=== PATIENT | female | born 1940 | race Two or more races ===

== ENCOUNTER 2023-08-17 14:20 | Inpatient (IN) | payer OTHER, MEDICARE ==
[2023-08-17] MEDS ORDERED: diphenhydrAMINE 50 MG/ML VIAL ONE (14:32)
[2023-08-17] MEDS ORDERED: methylPREDNISolone Sod Succ/PF 125 MG/2 ML VIAL ONE (14:32)
[2023-08-17] MEDS ORDERED: EPINEPHrine 1 MG/10 ML Abboject SYRINGE ONE (14:32)
[2023-08-17] MEDS ORDERED: Nitroglycerin 2% Ointment 1 INCH/1 GM Packet ONE (14:37)
[2023-08-17] MEDS ORDERED: Labetalol HCl 100 MG/20 ML VIAL ONE (14:37)
[2023-08-17] MEDS ORDERED: Iopamidol-370 76% 500 ML MDV (1 ML CHARGE) ONE (14:42)
[2023-08-17 14:55] LABS: #Basophils 0.1 thou/uL (0.0-0.2); #Eosinphils 0.1 thou/uL (0.0-0.7); #Monocytes 0.9 thou/uL (0.11-0.59); #Neutrophils 6.5 thou/uL (1.40-6.50); %Basophils 0.8 % (0.0-1.0); %Eosinophils 1.2 % (0.0-10.0); %Lymphocytes 20.9 % (21.0-51.0); %Monocytes 9.4 % (0.0-10.0); %Neutrophils 65.3 % (42.0-75.0); Hematocrit 41.6 % (36.0-47.0); Hemoglobin 13.9 g/dL (12.0-16.0); Mean Corpuscular HGB CONC 33.4 g/dL (32.0-36.0); Mean Corpuscular Hemoglobin 28.8 pg (27.0-31.0); Mean Corpuscular Volume 86.1 fl (78.0-98.0); Mean Platelet Volume 8.9 fL (7.4-10.4); Platelet Count 337 10x3/uL (130-400); RBC Distribution Width 15.3 % (11.5-14.5); Red Blood Cell (RBC) Count 4.83 mill/uL (4.20-5.40)
[2023-08-17 15:12] LABS: Prothrombin Time 12.8 sec (12.0-14.7)
[2023-08-17 15:18] LABS: ALT (SGPT) 21 U/L (8-55); AST (SGOT) 30 U/L (5-34); Albumin 4.1 g/dL (3.4-4.8); Alkaline Phosphatase 84 U/L (40-110); Anion Gap 13 mmol/L (10-20); BUN (Urea Nitrogen) 16 mg/dL (9.8-20.1); Bilirubin, Total 0.4 mg/dL (0.2-1.2); Calc. Creatinine Clearance 0 mL/min (70-130); Calcium 9.5 mg/dL (7.8-10.44); Carbon Dioxide 26 mmol/L (23-31); Chloride 99 mmol/L (98-107); Estimated GFR 58; Globulin 3.6 g/dL (2.4-3.5); Glucose 102 mg/dL (83-110); Potassium 4.3 mmol/L (3.5-5.1); Protein, Total 7.7 g/dL (5.8-8.1); Sodium 134 mmol/L (136-145)
[2023-08-17 15:28] LABS: Troponin I Less than 0.010 ng/mL (< 0.028)
[2023-08-17] MEDS ORDERED: Morphine 2 MG/ML VIAL SLOW IVP PRN ×2 (15:45→21:48)
[2023-08-17] MEDS ORDERED: hydrALAZINE 20 MG/ML VIAL ONE (15:58)
[2023-08-17] MEDS ORDERED: hydrALAZINE 20 MG/ML VIAL SLOW IVP SCH (16:00)
[2023-08-17] MEDS ORDERED: Ipratropium/Albuterol 3 ML NEB NEB PRN (16:02)
[2023-08-17] MEDS ORDERED: LORazepam 2 MG/ML SYR.(CARPUJECT) ONE (16:02)
[2023-08-17] MEDS ORDERED: LORazepam 2 MG/ML SYR.(CARPUJECT) IVP STA (16:03)
[2023-08-17] MEDS ORDERED: Cyclobenzaprine 10 MG TAB PO PRN ×2 (17:12→21:46)
[2023-08-17] MEDS: Famotidine/PF 20 mg/2ml Vial SLOW IVP SCH (20:34)
[2023-08-17] MEDS: Sodium Chloride 0.9% 1,000 ML IV SCH (20:36)
[2023-08-17] MEDS: Gabapentin 100 MG CAP PO SCH (20:49)
[2023-08-17] MEDS: hydrALAZINE 20 MG/ML VIAL SLOW IVP PRN (20:49)
[2023-08-17] MEDS: Atorvastatin Calcium 40 MG TAB PO SCH (20:49)
[2023-08-17] MEDS: Primidone 50 MG TAB PO SCH (20:49)
[2023-08-17] MEDS: Metoprolol Tartrate 5 MG (5 mL) VIAL IVP SCH (21:34)
[2023-08-17] MEDS: Levothyroxine Sodium 75 MCG TAB PO SCH (21:34)
[2023-08-17 21:37] LABS: Free T4 (Free Thyroxine) 1.14 ng/dL (0.70-1.48); Thyroid Stimulating Hormone 5.7164 uIU/mL (0.35-4.94)
[2023-08-17] MEDS: Dexamethasone 4 mg/ml Vial SLOW IVP SCH (22:18)
[2023-08-17] MEDS: dilTIAZem 125 MG in Sodium Chloride 0.9% 100 ML IVPB SCH (22:19)
[2023-08-17 22:24] LABS: Magnesium 1.7 mg/dL (1.6-2.6)
[2023-08-17] MEDS: Magnesium 2 GM/50 ML(in water) 2 GM in Premix 1 BAG IVPB SCH (23:10)
[2023-08-17] MEDS: Acetaminophen 500 MG TAB PO SCH (23:15)
[2023-08-18 05:25] LABS: #Monocytes 0.4 thou/uL (0.11-0.59); #Neutrophils 8.3 thou/uL (1.40-6.50); %Basophils 0.1 % (0.0-1.0); %Lymphocytes 9.7 % (21.0-51.0); %Monocytes 4.2 % (0.0-10.0); %Neutrophils 85.6 % (42.0-75.0); Hematocrit 39.2 % (36.0-47.0); Mean Corpuscular HGB CONC 33.2 g/dL (32.0-36.0); Mean Corpuscular Volume 87.5 fl (78.0-98.0); Mean Platelet Volume 9.2 fL (7.4-10.4); Platelet Count 336 10x3/uL (130-400); RBC Distribution Width 15.6 % (11.5-14.5); Red Blood Cell (RBC) Count 4.48 mill/uL (4.20-5.40); White Blood Cell (WBC) Count 9.7 10x3/uL (4.8-10.8)
[2023-08-18 05:54] LABS: Anion Gap 17 mmol/L (10-20); BUN (Urea Nitrogen) 17 mg/dL (9.8-20.1); Calc. Creatinine Clearance 37 mL/min (70-130); Calcium 9.1 mg/dL (7.8-10.44); Carbon Dioxide 18 mmol/L (23-31); Chloride 101 mmol/L (98-107); Estimated GFR 53; Glucose 194 mg/dL (83-110); Magnesium 2.6 mg/dL (1.6-2.6); Phosphorus 3.2 mg/dL (2.3-4.7); Potassium 4.3 mmol/L (3.5-5.1); Sodium 132 mmol/L (136-145)
[2023-08-18] MEDS: Levothyroxine Sodium 75 MCG TAB PO SCH (05:57)
[2023-08-18 06:14] LABS: Free T4 (Free Thyroxine) 1.09 ng/dL (0.70-1.48); Thyroid Stimulating Hormone 1.7158 uIU/mL (0.35-4.94)
[2023-08-18] MEDS ORDERED: PROPOFOL 20 ML ONE (09:45)
[2023-08-18] MEDS ORDERED: Ondansetron PF 4 MG/2 ML Vial ONE (10:25)
[2023-08-18] MEDS ORDERED: Lidocaine 1% PF 5 ML VIAL ONE (10:25)
[2023-08-18] MEDS ORDERED: Rocuronium Bromide 10 MG/ML (10ML VIAL) ONE (10:25)
[2023-08-18] MEDS ORDERED: Thrombin 5000 UNITS/5 ML VIAL ONE (10:33)
[2023-08-18] MEDS ORDERED: CEFAZOLIN 2 GM VIAL ONE (10:58)
[2023-08-18] MEDS ORDERED: Sodium Chloride 0.9% 100 ML ONE (10:59)
[2023-08-18] MEDS ORDERED: SUGAMMADEX SODIUM 200 MG/2 ML VIAL ONE (13:10)
[2023-08-18] MEDS ORDERED: fentaNYL 50 mcg/mL 1 mL Vial ONE ×2 (13:32→14:18)
[2023-08-18] MEDS ORDERED: diphenhydrAMINE 25 MG CAP PO PRN (13:46)
[2023-08-18] MEDS ORDERED: Milk Of Magnesia 30 ML UDCUP PO PRN (13:46)
[2023-08-18] MEDS ORDERED: HYDROcodone/Acetaminophen 7.5/325 mg Tablet PO PRN (13:54)
[2023-08-18] MEDS ORDERED: Acetaminophen 325 MG TAB PO PRN (13:54)
[2023-08-18] MEDS ORDERED: Acetaminophen/Codeine 30-300mg Tablet PO PRN (13:54)
[2023-08-18] MEDS ORDERED: Phenol 177 ML BOT PO PRN (13:55)
[2023-08-18] MEDS ORDERED: HYDROcodone/Acetaminophen 5/325 mg Tablet PO PRN (14:00)
[2023-08-18] MEDS ORDERED: Iopamidol-370 76% 500 ML MDV (1 ML CHARGE) ONE (15:17)
[2023-08-18] MEDS: Morphine 2 MG/ML VIAL SLOW IVP SCH (15:26)
[2023-08-18] MEDS ORDERED: Famotidine/PF 20 mg/2ml Vial SLOW IVP SCH (15:30)
[2023-08-18] MEDS: methylPREDNISolone Sod Succ 40 MG VIAL IVP SCH (15:50)
[2023-08-18] MEDS: diphenhydrAMINE 50 MG/ML VIAL IVP SCH (15:51)
[2023-08-18] MEDS: Famotidine/PF 20 mg/2ml Vial SLOW IVP SCH (15:51)
[2023-08-18] MEDS: Gabapentin 100 MG CAP PO SCH ×2 (16:45→19:20)
[2023-08-18] MEDS: Sodium Chloride 0.9% 1,000 ML IV SCH (16:45)
[2023-08-18] MEDS: Haloperidol Lactate 5 MG/ML VIAL SLOW IVP SCH ×2 (17:08→21:15)
[2023-08-18] MEDS ORDERED: Dexmedetomidine In 0.9 % NaCl 100 ML IVPB SCH (18:15)
[2023-08-18] MEDS ORDERED: dilTIAZem 125 MG in Sodium Chloride 0.9% 100 ML IVPB SCH ×3 (18:15→23:00)
[2023-08-18] MEDS: Esmolol 2,500 MG/250 ML 250 ML IVPB SCH (20:54)
[2023-08-18] MEDS: OLANZapine 10 MG VIAL IM SCH (21:54)
[2023-08-18] MEDS: Sterile Water 10 ML VIAL FS SCH (21:54)
[2023-08-18] MEDS: Melatonin 3 MG TAB PO SCH (22:03)
[2023-08-18] MEDS: QUEtiapine 25 MG TAB PO SCH (22:03)
[2023-08-18] MEDS: CEFAZOLIN 2 GM in Sodium Chloride 0.9% 100 ML IVPB SCH (22:04)
[2023-08-18] MEDS: dilTIAZem 125 MG in Sodium Chloride 0.9% 100 ML IVPB SCH (23:04)
[2023-08-19] MEDS: Morphine 2 MG/ML VIAL SLOW IVP PRN (00:08)
[2023-08-19 03:59] LABS: #Monocytes 1.2 thou/uL (0.11-0.59); #Neutrophils 15.3 thou/uL (1.40-6.50); %Basophils 0.1 % (0.0-1.0); %Monocytes 6.9 % (0.0-10.0); %Neutrophils 87.3 % (42.0-75.0); Hematocrit 37.2 % (36.0-47.0); Hemoglobin 12.4 g/dL (12.0-16.0); Mean Corpuscular HGB CONC 33.3 g/dL (32.0-36.0); Mean Corpuscular Hemoglobin 29.2 pg (27.0-31.0); Mean Corpuscular Volume 87.5 fl (78.0-98.0); Mean Platelet Volume 9.3 fL (7.4-10.4); Platelet Count 290 10x3/uL (130-400); RBC Distribution Width 15.8 % (11.5-14.5); Red Blood Cell (RBC) Count 4.25 mill/uL (4.20-5.40); White Blood Cell (WBC) Count 17.5 10x3/uL (4.8-10.8)
[2023-08-19 04:23] LABS: Anion Gap 13 mmol/L (10-20); BUN (Urea Nitrogen) 20 mg/dL (9.8-20.1); Calc. Creatinine Clearance 44 mL/min (70-130); Calcium 8.8 mg/dL (7.8-10.44); Carbon Dioxide 24 mmol/L (23-31); Chloride 102 mmol/L (98-107); Estimated GFR 66; Glucose 170 mg/dL (83-110); Potassium 4.3 mmol/L (3.5-5.1); Sodium 135 mmol/L (136-145)
[2023-08-19] MEDS: Sterile Water 10 ML VIAL FS PRN ×2 (04:53→21:16)
[2023-08-19] MEDS: OLANZapine 10 MG VIAL IM SCH ×2 (04:53→21:16)
[2023-08-19] MEDS: hydrALAZINE 20 MG/ML VIAL SLOW IVP PRN (16:42)
[2023-08-19] MEDS: Labetalol HCl 100 MG/20 ML VIAL SLOW IVP SCH ×2 (19:33→21:51)
[2023-08-19] MEDS: Sodium Chloride 0.9% 1,000 ML IV SCH (21:15)
[2023-08-19] MEDS: fentaNYL 50 mcg/mL 1 mL Vial SLOW IVP SCH (23:01)
[2023-08-19] MEDS: niCARdipine 25 MG in Sodium Chloride 0.9% 250 ML 250 ML IVPB PRN (23:42)
[2023-08-20] MEDS ORDERED: Milk Of Magnesia 30 ML UDCUP PER TUBE PRN (11:45)
[2023-08-20] MEDS: Labetalol HCl 100 MG/20 ML VIAL SLOW IVP PRN (14:04)
[2023-08-20] MEDS: HYDROcodone/Acetaminophen 5/325 mg Tablet PER TUBE PRN (15:01)
[2023-08-20] MEDS: Ondansetron PF 4 MG/2 ML Vial IVP PRN (15:01)
[2023-08-20] MEDS: Atorvastatin Calcium 40 MG TAB PER TUBE SCH (21:00)
[2023-08-20] MEDS: Melatonin 3 MG TAB PER TUBE SCH (21:00)
[2023-08-20] MEDS: QUEtiapine 25 MG TAB PER TUBE SCH (21:01)
[2023-08-20] MEDS: Primidone 50 MG TAB PER TUBE SCH (21:01)
[2023-08-21] MEDS: Levothyroxine Sodium 75 MCG TAB PER TUBE SCH (05:44)
[2023-08-21] MEDS: Acetaminophen/Codeine 30-300mg Tablet PER TUBE PRN (07:48)
[2023-08-21] MEDS: Lisinopril 10 MG TAB PO SCH (08:30)
[2023-08-21] MEDS ORDERED: Piperacillin/Tazobactam 3.375 GM in Sodium Chloride 0.9% 100 ML IVPB SCH (14:30)
[2023-08-21] MEDS: Piperacillin/Tazobactam 3.375 GM in Sodium Chloride 0.9% 100 ML IVPB SCH ×2 (15:24→19:38)
[2023-08-21] MEDS: Metoprolol Tartrate 5 MG (5 mL) VIAL IVP SCH (16:45)
[2023-08-21] MEDS: Metoprolol Tartrate 5 MG (5 mL) VIAL ONE (17:43)
[2023-08-21] MEDS: Adenosine 6 mg (2 mL) VIAL ONE (17:43)
[2023-08-21] MEDS: Morphine 2 MG/ML VIAL SLOW IVP SCH (17:46)
[2023-08-21] MEDS: Metoprolol Tartrate 25 MG TAB PO SCH (19:54)
[2023-08-21] MEDS ORDERED: Metoprolol Tartrate 25 MG TAB PO SCH (21:00)
[2023-08-22 04:25] LABS: Hematocrit 38.7 % (36.0-47.0); Hemoglobin 12.9 g/dL (12.0-16.0); Manual Diff?? YES; Mean Corpuscular HGB CONC 33.3 g/dL (32.0-36.0); Mean Corpuscular Hemoglobin 28.9 pg (27.0-31.0); Mean Corpuscular Volume 86.6 fl (78.0-98.0); Platelet Count 269 10x3/uL (130-400); RBC Distribution Width 15.9 % (11.5-14.5); Red Blood Cell (RBC) Count 4.47 mill/uL (4.20-5.40)
[2023-08-22 04:26] LABS: Delete Auto Diff?? YES
[2023-08-22 04:44] LABS: Anion Gap 10 mmol/L (10-20); BUN (Urea Nitrogen) 24 mg/dL (9.8-20.1); Calc. Creatinine Clearance 38 mL/min (70-130); Calcium 8.7 mg/dL (7.8-10.44); Carbon Dioxide 26 mmol/L (23-31); Chloride 105 mmol/L (98-107); Estimated GFR 66; Glucose 259 mg/dL (83-110); Potassium 3.3 mmol/L (3.5-5.1); Sodium 138 mmol/L (136-145)
[2023-08-22 05:31] LABS: Anisocytosis SLIGHT = 6-15 cells HPF (0-5); Band 7 % (5-11); CellaVision Operator ID lab.sh2; Lymphocytes 7 % (21-51); Macrocytosis SLIGHT = 6-15 cells HPF (0-5); Monocytes 10 % (0-10); Neutrophil 76 % (42-75); Platelet Adequacy Comment Platelets Normal; Polychromasia SLIGHT = 2-3 cells HPF (0-2); Smudge Cells 18.8 %; Total Cell Count 101
[2023-08-22] MEDS ORDERED: Electrolyte Replacement Protocol 1 EACH FS SCH (08:00)
[2023-08-22] MEDS: Potassium Bicarbonate/Cit Ac 20 MEQ TAB PER TUBE SCH (08:16)
[2023-08-22] MEDS: Amoxicillin/Potassium Clav 875 MG TAB PO SCH (08:16)
[2023-08-22] MEDS: Enoxaparin 30 MG (0.3 mL) SYRINGE SC SCH (10:44)
[2023-08-22 12:53] LABS: Potassium 3.8 mmol/L (3.5-5.1)
[2023-08-22] MEDS: Metoprolol Tartrate 25 MG TAB PO SCH (15:53)
[2023-08-23] MEDS: diphenhydrAMINE 25 MG CAP PER TUBE PRN (00:13)
[2023-08-23] MEDS: Metoprolol Tartrate 50 MG TAB PO SCH (09:09)
[2023-08-23] MEDS: Enoxaparin 30 MG (0.3 mL) SYRINGE SC SCH (09:09)
[2023-08-23] MEDS: hydrALAZINE 20 MG/ML VIAL SLOW IVP PRN (20:04)
[2023-08-24] MEDS: NIFEdipine XL 30 MG ER.TAB PO SCH (08:28)
[2023-08-24] MEDS: Dexamethasone 10 MG/ML VIAL SLOW IVP SCH (12:32)
[2023-08-24 12:45] LABS: Bilirubin Negative (Negative); Blood, Urine Negative (Negative); CAUTI Indications for Culture Alt mental st,lethar; Clarity Turbid (Clear); Glucose, Urine (Dipstick) 150 mg/dL (Negative); Ketone, Urine Negative (Negative); Leukocyte 250 Leu/uL (Negative); Nitrite Negative (Negative); Protein, Urine (Dipstick) 70 mg/dL (Neg-Trace); Specific Gravity, Urine 1.021 (1.002-1.036); Squamous Epithelial 0-3 HPF (0-3); Urobilinogen 3 mg/dL (Less than 2); WBC/HPF Greater than 50 HPF (0-3); pH, Urine 6.5 (5.0-9.0)
[2023-08-24 13:23] LABS: Bacteria/HPF 1+ HPF (None Seen)
[2023-08-24 13:25] LABS: Renal Epithelial 0-3 HPF (None Seen); Transitional Epithelial 0-3 HPF (None Seen)
[2023-08-24 13:29] LABS: Urine Culture Reflex Yes Yes
[2023-08-24] MEDS: Dexamethasone 4 mg/ml Vial SLOW IVP SCH (17:22)
[2023-08-25] MEDS: LevoFLOXacin 750 mg/D5W 750 MG in Premix 1 BAG IVPB SCH (10:02)
[2023-08-25] MEDS: Famotidine/PF 20 mg/2ml Vial SLOW IVP SCH (10:04)
[2023-08-25] MEDS: Dexamethasone 4 mg/ml Vial SLOW IVP SCH (12:44)
[2023-08-25] MEDS: Acetaminophen 325 MG TAB PER TUBE PRN (20:38)
[2023-08-26] MEDS: Metoprolol Tartrate 5 MG (5 mL) VIAL IVP SCH (13:00)
[2023-08-26] MEDS: hydrALAZINE 25 MG TAB PO SCH (14:21)
[2023-08-26 14:49] LABS: Anion Gap 17 mmol/L (10-20); BUN (Urea Nitrogen) 43 mg/dL (9.8-20.1); Calc. Creatinine Clearance 44 mL/min (70-130); Calcium 9.2 mg/dL (7.8-10.44); Carbon Dioxide 20 mmol/L (23-31); Chloride 105 mmol/L (98-107); Estimated GFR 64; Glucose 357 mg/dL (83-110); Potassium 4.1 mmol/L (3.5-5.1); Sodium 138 mmol/L (136-145)
[2023-08-26] MEDS ORDERED: NIFEdipine 10 MG CAP PO SCH (15:00)
[2023-08-26] MEDS ORDERED: Dextrose 5% in Water 1,000 ML IV PRN (15:27)
[2023-08-26] MEDS ORDERED: Glucagon 1 MG/ML KIT IM PRN (15:27)
[2023-08-26] MEDS ORDERED: Dextrose 50% Abboject 50 ML SYRINGE SLOW IVP PRN (15:27)
[2023-08-26] MEDS: HumaLOG 300 UNITS/3 ML VIAL SC PRN (15:57)
[2023-08-26] MEDS: Dexamethasone 4 mg/ml Vial SLOW IVP SCH (18:19)
[2023-08-27] MEDS: Famotidine/PF 20 mg/2ml Vial SLOW IVP SCH (08:14)
[2023-08-27] MEDS ORDERED: Dextrose 50% Abboject 50 ML SYRINGE SLOW IVP PRN (16:24)
[2023-08-27] MEDS ORDERED: Glucagon 1 MG/ML KIT IM PRN (16:24)
[2023-08-27] MEDS ORDERED: Dextrose 5% in Water 1,000 ML IV PRN (16:24)
[2023-08-27] MEDS: Metoprolol Tartrate 5 MG (5 mL) VIAL IVP PRN (23:41)
[2023-08-28] MEDS: HumaLOG 300 UNITS/3 ML VIAL SC PRN (05:44)
[2023-08-28 06:03] LABS: #Basophils 0.1 thou/uL (0.0-0.2); #Monocytes 1.4 thou/uL (0.11-0.59); #Neutrophils 13.2 thou/uL (1.40-6.50); %Basophils 0.4 % (0.0-1.0); %Lymphocytes 7.1 % (21.0-51.0); %Monocytes 8.6 % (0.0-10.0); Hemoglobin 14.1 g/dL (12.0-16.0); Mean Corpuscular HGB CONC 32.8 g/dL (32.0-36.0); Mean Corpuscular Hemoglobin 28.6 pg (27.0-31.0); Mean Corpuscular Volume 87.2 fl (78.0-98.0); Mean Platelet Volume 10.4 fL (7.4-10.4); Platelet Count 474 10x3/uL (130-400); RBC Distribution Width 15.7 % (11.5-14.5); Red Blood Cell (RBC) Count 4.93 mill/uL (4.20-5.40); White Blood Cell (WBC) Count 16.1 10x3/uL (4.8-10.8)
[2023-08-28 06:36] LABS: Anion Gap 13 mmol/L (10-20); BUN (Urea Nitrogen) 43 mg/dL (9.8-20.1); Calc. Creatinine Clearance 44 mL/min (70-130); Calcium 9.3 mg/dL (7.8-10.44); Carbon Dioxide 25 mmol/L (23-31); Chloride 102 mmol/L (98-107); Estimated GFR 65; Glucose 326 mg/dL (83-110); Potassium 4.3 mmol/L (3.5-5.1); Sodium 136 mmol/L (136-145)
[2023-08-28] MEDS: Polyethylene Glycol 3350 17 GM Packet PER TUBE SCH (10:13)
[2023-08-28] MEDS: Insulin Glargine 30 UNITS/0.3 ML VIAL SC SCH ×2 (10:13→21:27)
[2023-08-28 12:22] LABS: Hemoglobin A1c 6.4 % (4.0-6.0)
[2023-08-28 15:42] VITALS: BMI 21.9
[2023-08-28] MEDS: Dexamethasone 4 mg/ml Vial SLOW IVP SCH (17:53)
[2023-08-30] MEDS: Famotidine 20 MG TAB PO SCH (09:44)
[2023-08-30] MEDS: hydrALAZINE 25 MG TAB PO SCH (09:44)
[2023-08-30] MEDS ORDERED: HumaLOG 300 UNITS/3 ML VIAL SC PRN (15:16)
[2023-08-30] MEDS: Dexamethasone 4 mg/ml Vial SLOW IVP SCH (18:11)
[2023-08-30] MEDS: Insulin Glargine 30 UNITS/0.3 ML VIAL SC SCH (20:47)
[2023-08-31] MEDS: Primidone 50 MG TAB PER TUBE SCH (09:33)
[2023-08-31 17:56] VITALS: BP 128/62; TEMP 97.5
== END 2023-08-31 17:50 | DRG 471 ==
LOC: ERS 14:20 → OBSVTOIN 15:14 → 2SE 15:14 → IMCU/EMU 08-18 18:58 → CCU 08-18 21:20 → 2NO 08-22 10:56
PROVIDERS: ADMIT Student in an Organized Health Care Education/Training Program; ATTEND Student in an Organized Health Care Education/Training Program
PROC: 3E033XZ Introduction of Vasopressor into Peripheral Vein, Percutaneous Approach (ICD-10-PCS; 2023-08-17)
PROC: 0RB30ZZ Excision of Cervical Vertebral Disc, Open Approach (ICD-10-PCS; principal; 2023-08-18)
PROC: 0RG20A0 Fusion of 2 or more Cervical Vertebral Joints with Interbody Fusion Device, Anterior Approach, Anterior Column, Open Approach (ICD-10-PCS; 2023-08-18)
PROC: 01N10ZZ Release Cervical Nerve, Open Approach (ICD-10-PCS; 2023-08-18)
DX: S32.039A Unspecified fracture of third lumbar vertebra, initial encounter for closed fracture (principal); J69.0 Pneumonitis due to inhalation of food and vomit; S02.839A Fracture of medial orbital wall, unspecified side, initial encounter for closed fracture; G93.40 Encephalopathy, unspecified; R47.01 Aphasia; N39.0 Urinary tract infection, site not specified; M48.02 Spinal stenosis, cervical region; S14.129A Central cord syndrome at unspecified level of cervical spinal cord, initial encounter; V89.2XXA Person injured in unspecified motor-vehicle accident, traffic, initial encounter; I10 Essential (primary) hypertension; Z91.041 Radiographic dye allergy status; Z88.2 Allergy status to sulfonamides; Z91.013 Allergy to seafood; Z90.89 Acquired absence of other organs; R31.0 Gross hematuria; I16.0 Hypertensive urgency; I48.0 Paroxysmal atrial fibrillation; Z79.899 Other long term (current) drug therapy; E11.9 Type 2 diabetes mellitus without complications; E06.3 Autoimmune thyroiditis; Z79.4 Long term (current) use of insulin
CPT/HCPCS: 36415; 36416; 70450; 70551; 71045; 71260; 72125; 72141; 72194; 74018; 74177; 74230; 80048; 80053; 81001; 83036; 83735; 83880; 84100; 84439; 84443; 84481; 84484; 85025; 85610; 85730; 87086; 93005; 93010; 93306; 93970; 96374; 96375; C1713; G0390; J0171; J0360; J1100; J1200; J1630; J1650; J1815; J1956; J2060; J2272; J2405; J2543; J2704; J2920; J2930; J3010; J3475; J3490; J7050; Q9967; S0028

== ENCOUNTER 2023-09-24 07:30 | Inpatient (IN) | payer MEDICARE ==
[2023-09-24] MEDS ORDERED: fentaNYL 50 mcg/mL 1 mL Vial ONE ×2 (07:43→12:05)
[2023-09-24 07:44] LABS: #Basophils 0.1 thou/uL (0.0-0.2); #Eosinphils 0.2 thou/uL (0.0-0.7); #Monocytes 0.8 thou/uL (0.11-0.59); #Neutrophils 3.2 thou/uL (1.40-6.50); %Eosinophils 4.1 % (0.0-10.0); %Lymphocytes 26.3 % (21.0-51.0); %Neutrophils 54.1 % (42.0-75.0); Hematocrit 38.7 % (36.0-47.0); Hemoglobin 12.6 g/dL (12.0-16.0); Mean Corpuscular HGB CONC 32.6 g/dL (32.0-36.0); Mean Corpuscular Hemoglobin 29.3 pg (27.0-31.0); Mean Platelet Volume 8.9 fL (7.4-10.4); Platelet Count 332 10x3/uL (130-400); RBC Distribution Width 16.3 % (11.5-14.5); White Blood Cell (WBC) Count 5.9 10x3/uL (4.8-10.8)
[2023-09-24 08:01] LABS: ALT (SGPT) 13 U/L (8-55); AST (SGOT) 18 U/L (5-34); Albumin 3.3 g/dL (3.4-4.8); Alkaline Phosphatase 120 U/L (40-110); Anion Gap 10 mmol/L (10-20); BUN (Urea Nitrogen) 9 mg/dL (9.8-20.1); Bilirubin, Total 0.4 mg/dL (0.2-1.2); Calc. Creatinine Clearance 0 mL/min (70-130); Calcium 8.9 mg/dL (7.8-10.44); Carbon Dioxide 26 mmol/L (23-31); Chloride 105 mmol/L (98-107); Estimated GFR 78; Globulin 2.9 g/dL (2.4-3.5); Glucose 98 mg/dL (83-110); Protein, Total 6.2 g/dL (5.8-8.1); Sodium 137 mmol/L (136-145)
[2023-09-24] MEDS ORDERED: Iopamidol-370 76% 500 ML MDV (1 ML CHARGE) ONE (08:59)
[2023-09-24] MEDS ORDERED: Famotidine/PF 20 mg/2ml Vial ONE (09:03)
[2023-09-24] MEDS ORDERED: diphenhydrAMINE 50 MG/ML VIAL ONE (09:03)
[2023-09-24] MEDS ORDERED: methylPREDNISolone Sod Succ 40 MG VIAL ONE (09:03)
[2023-09-24] MEDS ORDERED: Ondansetron ODT 4 MG TAB PO PRN (10:27)
[2023-09-24] MEDS ORDERED: Dextrose 50% Abboject 50 ML SYRINGE SLOW IVP PRN (10:27)
[2023-09-24] MEDS ORDERED: Dextrose 5% in Water 1,000 ML IV PRN (10:27)
[2023-09-24] MEDS ORDERED: Glucagon 1 MG/ML KIT IM PRN (10:27)
[2023-09-24] MEDS ORDERED: Ipratropium/Albuterol 3 ML NEB NEB PRN (10:27)
[2023-09-24] MEDS ORDERED: Ondansetron PF 4 MG/2 ML Vial IVP PRN (10:27)
[2023-09-24] MEDS ORDERED: Morphine 2 MG/ML VIAL SLOW IVP PRN (10:27)
[2023-09-24] MEDS ORDERED: CEFAZOLIN 2 GM in Sodium Chloride 0.9% 100 ML IVPB SCH (11:00)
[2023-09-24] MEDS ORDERED: PROPOFOL 20 ML ONE (12:05)
[2023-09-24] MEDS ORDERED: SUGAMMADEX SODIUM 200 MG/2 ML VIAL ONE (12:06)
[2023-09-24] MEDS ORDERED: Ondansetron PF 4 MG/2 ML Vial ONE (12:08)
[2023-09-24] MEDS ORDERED: SUCCINYLCHOLINE/SOD CL,ISO/PF 200 MG/10 ML SYRINGE FS ONE (12:08)
[2023-09-24] MEDS ORDERED: Lidocaine 1% PF 5 ML VIAL ONE (12:08)
[2023-09-24] MEDS ORDERED: Rocuronium Bromide 10 MG/ML (10ML VIAL) ONE (12:08)
[2023-09-24] MEDS ORDERED: Dexamethasone 4 mg/ml Vial ONE (12:08)
[2023-09-24] MEDS ORDERED: Sodium Chloride 0.9% 100 ML ONE (12:24)
[2023-09-24] MEDS ORDERED: CEFAZOLIN 2 GM VIAL ONE (12:24)
[2023-09-24] MEDS ORDERED: Promethazine HCl 25 MG/ML VIAL IM PRN (13:01)
[2023-09-24] MEDS ORDERED: Ondansetron HCl/PF 4 MG/2 ML Vial IVP PRN (13:01)
[2023-09-24] MEDS: CEFAZOLIN 2 GM in Sodium Chloride 0.9% 100 ML IVPB SCH (22:07)
[2023-09-25] MEDS: Sodium Chloride 0.9% 1,000 ML IV SCH ×2 (00:30→01:31)
[2023-09-25 01:08] LABS: #Monocytes 1.4 thou/uL (0.11-0.59); #Neutrophils 6.3 thou/uL (1.40-6.50); %Basophils 0.2 % (0.0-1.0); %Monocytes 15.8 % (0.0-10.0); %Neutrophils 71.5 % (42.0-75.0); Hemoglobin 11.2 g/dL (12.0-16.0); Mean Corpuscular HGB CONC 32.9 g/dL (32.0-36.0); Mean Corpuscular Hemoglobin 29.8 pg (27.0-31.0); Mean Corpuscular Volume 90.4 fl (78.0-98.0); Platelet Count 320 10x3/uL (130-400); RBC Distribution Width 16.3 % (11.5-14.5); Red Blood Cell (RBC) Count 3.76 mill/uL (4.20-5.40); White Blood Cell (WBC) Count 8.8 10x3/uL (4.8-10.8)
[2023-09-25 04:04] LABS: #Monocytes 1.6 thou/uL (0.11-0.59); #Neutrophils 6.2 thou/uL (1.40-6.50); %Basophils 0.2 % (0.0-1.0); %Lymphocytes 13.7 % (21.0-51.0); %Monocytes 17.1 % (0.0-10.0); %Neutrophils 68.4 % (42.0-75.0); Hematocrit 33.2 % (36.0-47.0); Hemoglobin 10.7 g/dL (12.0-16.0); Mean Corpuscular HGB CONC 32.2 g/dL (32.0-36.0); Mean Corpuscular Hemoglobin 28.7 pg (27.0-31.0); Mean Platelet Volume 9.2 fL (7.4-10.4); Platelet Count 307 10x3/uL (130-400); RBC Distribution Width 16.4 % (11.5-14.5); Red Blood Cell (RBC) Count 3.73 mill/uL (4.20-5.40); White Blood Cell (WBC) Count 9.1 10x3/uL (4.8-10.8)
[2023-09-25 04:23] LABS: Anion Gap 12 mmol/L (10-20); BUN (Urea Nitrogen) 13 mg/dL (9.8-20.1); Calc. Creatinine Clearance 48 mL/min (70-130); Carbon Dioxide 23 mmol/L (23-31); Chloride 106 mmol/L (98-107); Estimated GFR 73; Glucose 128 mg/dL (83-110); Potassium 4.3 mmol/L (3.5-5.1); Sodium 137 mmol/L (136-145)
[2023-09-25] MEDS: Metoprolol Tartrate 50 MG TAB PO SCH (08:45)
[2023-09-25] MEDS: Primidone 50 MG TAB PO SCH (08:45)
[2023-09-25] MEDS ORDERED: Metoprolol Tartrate 25 MG TAB PO SCH (09:00)
[2023-09-25] MEDS: Atorvastatin Calcium 40 MG TAB PO SCH (20:16)
[2023-09-26] MEDS: hydrALAZINE 20 MG/ML VIAL SLOW IVP PRN (01:35)
[2023-09-26] MEDS: HYDROcodone/Acetaminophen 5/325 mg Tablet PO PRN (02:08)
[2023-09-26] MEDS: Acetaminophen/Codeine 30-300mg Tablet PO PRN (10:03)
[2023-09-27] MEDS: Melatonin 3 MG TAB PO PRN (01:13)
[2023-09-27] MEDS: Acetaminophen 325 MG TAB PO PRN (01:13)
[2023-09-27] MEDS: Metoprolol Tartrate 50 MG TAB PO SCH (09:53)
[2023-09-27] MEDS: Acetaminophen 325 MG TAB PO SCH (09:54)
[2023-09-27] MEDS: Atorvastatin Calcium 40 MG TAB PO SCH (21:18)
[2023-09-27] MEDS: Aspirin 81 mg Enteric Coated Tablet PO SCH (21:18)
[2023-09-28 06:23] LABS: #Basophils 0.1 thou/uL (0.0-0.2); #Eosinphils 0.2 thou/uL (0.0-0.7); #Monocytes 0.8 thou/uL (0.11-0.59); #Neutrophils 3.1 thou/uL (1.40-6.50); %Basophils 0.8 % (0.0-1.0); %Eosinophils 2.7 % (0.0-10.0); %Lymphocytes 32.9 % (21.0-51.0); %Monocytes 13.3 % (0.0-10.0); %Neutrophils 48.9 % (42.0-75.0); Hematocrit 26.7 % (36.0-47.0); Hemoglobin 8.7 g/dL (12.0-16.0); Mean Corpuscular HGB CONC 32.6 g/dL (32.0-36.0); Mean Corpuscular Hemoglobin 29.3 pg (27.0-31.0); Mean Corpuscular Volume 89.9 fl (78.0-98.0); Mean Platelet Volume 9.1 fL (7.4-10.4); Platelet Count 326 10x3/uL (130-400); RBC Distribution Width 16.6 % (11.5-14.5); Red Blood Cell (RBC) Count 2.97 mill/uL (4.20-5.40); White Blood Cell (WBC) Count 6.2 10x3/uL (4.8-10.8)
[2023-09-28 06:50] LABS: Anion Gap 11 mmol/L (10-20); BUN (Urea Nitrogen) 12 mg/dL (9.8-20.1); Calc. Creatinine Clearance 59 mL/min (70-130); Calcium 7.8 mg/dL (7.8-10.44); Carbon Dioxide 23 mmol/L (23-31); Chloride 107 mmol/L (98-107); Estimated GFR 87; Glucose 91 mg/dL (83-110); Magnesium 1.5 mg/dL (1.6-2.6); Phosphorus 3.3 mg/dL (2.3-4.7); Potassium 3.8 mmol/L (3.5-5.1); Sodium 137 mmol/L (136-145)
[2023-09-28 11:25] VITALS: BP 146/74; TEMP 97.8
== END 2023-09-28 12:45 | DRG 481 ==
LOC: ERS 07:30 → SDC 11:48 → SJJU 15:44
PROVIDERS: ADMIT Orthopaedic Surgery; ATTEND Orthopaedic Surgery
PROC: 0QS704Z Reposition Left Upper Femur with Internal Fixation Device, Open Approach (ICD-10-PCS; principal; 2023-09-24)
DX: S72.142A Displaced intertrochanteric fracture of left femur, initial encounter for closed fracture (principal); S12.300A Unspecified displaced fracture of fourth cervical vertebra, initial encounter for closed fracture; E06.3 Autoimmune thyroiditis; N31.9 Neuromuscular dysfunction of bladder, unspecified; I10 Essential (primary) hypertension; F03.90 Unspecified dementia, unspecified severity, without behavioral disturbance, psychotic disturbance, mood disturbance, and anxiety; E03.9 Hypothyroidism, unspecified; E78.5 Hyperlipidemia, unspecified; G47.9 Sleep disorder, unspecified; W18.30XA Fall on same level, unspecified, initial encounter; Z98.1 Arthrodesis status; Z90.89 Acquired absence of other organs; Z88.2 Allergy status to sulfonamides; Z91.013 Allergy to seafood
CPT/HCPCS: 36415; 70450; 70498; 71045; 72125; 72170; 80048; 80053; 83735; 84100; 85025; 86850; 86900; 86901; 93005; 93010; 96374; 96375; C1713; J0360; J1100; J1200; J2405; J2704; J2920; J3010; J3490; J7050; Q9967; S0028